=== PATIENT | male | born 2005 | race Caucasian/White ===

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

== ENCOUNTER 2023-07-03 13:03 | Emergency (ER) | payer BC, OTHER ==
[~2023-07-03] VITALS: Ht 170.2 cm; Wt 120.7 kg
[~2023-07-03 13:03] MED LIST changes: +FLONAS NS; +GUAI118L81 PO; +SUD30 PO; -TYLENOL
[2023-07-03 13:53] VITALS: BP 145/90; PULSE 111; RESP 20; TEMP 97.6; O2SAT 96
[2023-07-03] MEDS ORDERED: IBUP-2218 PO (15:07)
[2023-07-03] MEDS ORDERED: PROM118S5 PO (15:07)
[2023-07-03] MEDS ORDERED: ONDA-188 PO (15:07)
[2023-07-03 16:54] LABS: FLU A ANTIGEN negative (NEGATIVE); FLU B ANTIGEN negative (NEGATIVE)
== END 2023-07-03 16:24 | disposition home or self-care (01) ==
LOC: MED 13:03
DX: B34.9 Viral infection, unspecified (principal); Z20.822 Contact with and (suspected) exposure to COVID-19; J45.909 Unspecified asthma, uncomplicated; Z79.899 Other long term (current) drug therapy; Z79.1 Long term (current) use of non-steroidal anti-inflammatories (NSAID)
CPT/HCPCS: 87081; 99283